=== PATIENT | male | born 1965 | race Two or more races ===

== ENCOUNTER 2024-06-05 04:16 | Emergency (ER) | payer MEDICAID ==
[~2024-06-05] VITALS: Ht 167.6 cm; Wt 107.0 kg
[2024-06-05 04:23] VITALS: BP 180/102; PULSE 94; RESP 20; TEMP 98.2; O2SAT 96
[2024-06-05] MEDS ORDERED: ACETAMINOPHEN 1000MG/100ML 100 ML IV ONE (05:00)
[2024-06-05 05:07] LABS: BASOPHILS % 0.6 % (0.0-2.0); EOSINOPHILS % 2.6 % (0.0-5.0); HEMATOCRIT. 36.3 % (42.0-52.0); HEMOGLOBIN. 12.4 g/dL (14.0-18.0); LYMPHOCYTES % 19.5 % (20.0-50.0); MEAN CORPUSCULAR HEMOGLOBIN 29.2 pg (28.0-32.0); MEAN CORPUSCULAR HGB CONC 34.1 g/dL (31.0-37.0); MEAN CORPUSCULAR VOLUME 85.4 fL (80.0-94.0); MONOCYTES % 6.4 % (2.0-8.0); NEUTROPHILS % 70.9 % (40.0-76.0); PLATELET 217 x1000/uL (130-400); RED BLOOD CELL COUNT 4.25 mill/uL (4.7-6.1); RED CELL DISTRIBUTION WIDTH 15.1 % (11.6-14.6)
[2024-06-05 05:18] LABS: CHLORIDE 106 mEq/L (98-107); POTASSIUM 3.5 mEq/L (3.5-5.1); SODIUM 136 mEq/L (136-145)
[2024-06-05 05:19] LABS: CARBON DIOXIDE 24 mEq/L (21-32)
[2024-06-05 05:20] LABS: CALCIUM 9.5 mg/dL (8.7-10.4)
[2024-06-05 05:24] LABS: CREATININE 0.9 mg/dL (0.6-1.3)
[2024-06-05 05:25] LABS: GLUCOSE 170 mg/dL (70-105); UREA NITROGEN BLOOD 13 mg/dL (9-23)
[2024-06-05 05:26] LABS: ALANINE AMINOTRANSFERASE 14 IU/L (10-49); ALBUMIN 4.1 g/dL (3.2-4.8); ASPARTATE AMINOTRANSFERASE 8 IU/L (<34); INR 1.1; PROTHROMBIN TIME 12.6 sec (9.6-11.0)
[2024-06-05 05:27] LABS: BILIRUBIN DIRECT 0.1 mg/dL (<=3.0); BILIRUBIN TOTAL 0.5 mg/dL (0.1-1.0); PROTEIN TOTAL 7.9 g/dL (6.0-8.3)
[2024-06-05] MEDS ORDERED: KETOROLAC 30MG/ML VIAL IV STA (05:34)
[2024-06-05 05:39] LABS: ETHANOL BLOOD < 10 mg/dL (<10)
[2024-06-05] MEDS ORDERED: IPRATROPIUM/ALBUTEROL 0.5-3(2.5)MG/3ML NEB NEB PRN (09:00)
[2024-06-05] MEDS ORDERED: BLOOD SUGAR DIAGNOSTIC STRIP TEST SCH (09:00)
[2024-06-05] MEDS ORDERED: GUAIFENESIN 200MG/10ML SUGAR FREE UDC PO PRN (09:00)
[2024-06-05] MEDS ORDERED: ONDANSETRON HCL 4MG/2ML INJ IV PRN (09:00)
[2024-06-05] MEDS ORDERED: CLONIDINE 0.1MG TABLET PO PRN (09:00)
[2024-06-05] MEDS ORDERED: DEXTROSE 50% WATER 50ML SYRINGE IV PRN (09:00)
[2024-06-05] MEDS ORDERED: FAMOTIDINE 20MG TABLET PO SCH (09:00)
[2024-06-05] MEDS ORDERED: ENOXAPARIN 40MG/0.4ML SYR SUBCUT SCH (09:00)
[2024-06-05] MEDS ORDERED: AMLODIPINE 5MG TABLET PO SCH (09:00)
[2024-06-05] MEDS ORDERED: NITROGLYCERIN 0.4MG TABLET SL SL PRN (09:00)
[2024-06-05] MEDS ORDERED: ACETAMINOPHEN 325MG TABLET PO PRN ×2 (09:00)
[2024-06-05] MEDS ORDERED: KETOROLAC 15MG/ML VIAL IV PRN (09:00)
[2024-06-05] MEDS ORDERED: DOCUSATE SODIUM 100MG CAPSULE PO PRN (09:00)
[2024-06-05] MEDS ORDERED: LOSARTAN 50 MG TABLET PO SCH (09:00)
[2024-06-05] MEDS ORDERED: MAGNESIUM/ALUMINUM HYDROXIDE/SIMETHICONE 30ML UDC PO PRN (09:00)
[2024-06-05] MEDS ORDERED: ENOXAPARIN 30MG/0.3ML SYR SUBCUT SCH (10:00)
[2024-06-05] MEDS ORDERED: INSULIN LISPRO 100 UNITS/ML SUBCUT SCH (13:20)
[2024-06-05] MEDS ORDERED: ZOLPIDEM TARTRATE 5MG TABLET PO PRN (21:00)
[2024-06-05] MEDS ORDERED: INSULIN GLARGINE 100 UNITS/ML SUBCUT SCH (22:00)
== END 2024-06-05 09:42 | disposition left against medical advice (07) ==
LOC: ER 04:16 → EDBEDREQ 08:27 → EDBEDREQTM 08:27 → ER 09:42
DX: M25.551 Pain in right hip (principal); K40.20 Bilateral inguinal hernia, without obstruction or gangrene, not specified as recurrent; E11.9 Type 2 diabetes mellitus without complications; E78.00 Pure hypercholesterolemia, unspecified; I10 Essential (primary) hypertension; Z90.49 Acquired absence of other specified parts of digestive tract; Z79.899 Other long term (current) drug therapy
CPT/HCPCS: 80076; 80048; 80320; 83690; 85025; 85610; 36415; 74176; 99284; Z7610; G0480; J0131